=== PATIENT | female | born 1940 | race Caucasian/White ===

== ENCOUNTER 2022-05-24 15:27 | Observation (INO) | payer MEDICARE, OTHER ==
[2022-05-24 16:52] LABS: Bilirubin Neg (Negative); Blood, Urine 150 (Negative); Clarity Clear (Clear); Glucose, Urine (Dipstick) Normal (Negative); Ketone, Urine 5 mg/dL (Negative); Leukocyte Negative (Negative); Nitrite Negative (Negative); Protein, Urine (Dipstick) 30 mg/dl (Neg-Trace); Specific Gravity, Urine 1.025 (1.002-1.036); Urobilinogen Normal mg/dL (Less than 2)
[2022-05-24 17:03] LABS: SARS-CoV-2 NAA Rapid Test DETECTED (NotDetected)
[2022-05-24 17:10] LABS: Transitional Epithelial 0-3 HPF (None Seen)
[2022-05-24 17:11] LABS: ALT (SGPT) 17 U/L (8-55); AST (SGOT) 27 U/L (5-34); Albumin 4.1 g/dL (3.4-4.8); Alkaline Phosphatase 63 U/L (40-110); Anion Gap 13 mmol/L (10-20); BUN (Urea Nitrogen) 18 mg/dL (9.8-20.1); Bacteria/HPF 1+ HPF (None Seen); Bilirubin, Total 0.5 mg/dL (0.2-1.2); Calc. Creatinine Clearance 0 mL/min (70-130); Calcium 9.2 mg/dL (7.8-10.44); Carbon Dioxide 28 mmol/L (23-31); Chloride 101 mmol/L (98-107); Estimated GFR 75; Globulin 2.7 g/dL (2.4-3.5); Glucose 87 mg/dL (83-110); Potassium 3.5 mmol/L (3.5-5.1); Protein, Total 6.8 g/dL (5.8-8.1); Sodium 138 mmol/L (136-145)
[2022-05-24 17:16] LABS: Hemoglobin 14.1 g/dL (12.0-15.5); Mean Corpuscular Hemoglobin 34.5 pg (27.0-33.0); Mean Corpuscular Volume 98.5 fl (81.6-98.3); Mean Platelet Volume 10.8 fl (7.4-10.4); Platelet Count 176 10x3/uL (150-450); RBC Distribution Width 13.7 % (11.5-14.5); Red Blood Cell (RBC) Count 4.09 10x6/uL (3.90-5.03)
[2022-05-24 17:32] LABS: CKMB 4.1 ng/mL (0-6.6)
[2022-05-24 18:31] LABS: Band 8 % (5-11); Reactive Lymphocytes 3 % (0-10)
[2022-05-24 18:33] LABS: Lymphocytes 28 % (21-51); Monocytes 14 % (0-10)
[2022-05-24 18:34] LABS: Large Platelets SLIGHT; Neutrophil 47 % (42-75); Platelet Clumps SLIGHT; Platelet Morphology Comment Appears Adequate
[2022-05-24 18:35] LABS: MDiff Complete? YES
[2022-05-24 18:36] LABS: RBC Morphology Normal
[2022-05-24] MEDS ORDERED: Acetaminophen 325 MG TAB PO PRN (20:01)
[2022-05-24] MEDS ORDERED: Benzonatate 100 MG CAP PO PRN (20:01)
[2022-05-24] MEDS ORDERED: Acetaminophen 650 MG Suppository PR PRN (20:01)
[2022-05-24] MEDS ORDERED: REMDESIVIR 200 MG in Sodium Chloride 0.9% 250 ML 210 ML IV SCH (20:15)
[2022-05-24 21:02] LABS: Troponin I 0.029 ng/mL (< 0.028)
[2022-05-24] MEDS ORDERED: Furosemide 40 MG/4 ML VIAL SLOW IVP SCH (21:15)
[2022-05-24] MEDS ORDERED: Ventolin HFA Inhaler 60 PUFF INHALER INH PRN (21:16)
[2022-05-24] MEDS ORDERED: Furosemide 40 MG/4 ML VIAL ONE (21:41)
[2022-05-24] MEDS ORDERED: Ondansetron ODT 4 MG TAB PO PRN (22:11)
[2022-05-24] MEDS ORDERED: Ondansetron PF 4 MG/2 ML Vial IVP PRN (22:11)
[2022-05-24 23:20] LABS: Troponin I 0.028 ng/mL (< 0.028)
[2022-05-25 05:23] LABS: Anion Gap 17 mmol/L (10-20); BUN (Urea Nitrogen) 12 mg/dL (9.8-20.1); CRP (Inflammatory) 2.53 mg/dL (= or < 0.5); Calc. Creatinine Clearance 0 mL/min (70-130); Calcium 8.8 mg/dL (7.8-10.44); Carbon Dioxide 23 mmol/L (23-31); Chloride 102 mmol/L (98-107); Estimated GFR 81; Glucose 76 mg/dL (83-110); Potassium 3.1 mmol/L (3.5-5.1); Sodium 139 mmol/L (136-145)
[2022-05-25 05:29] LABS: Hemoglobin 13.8 g/dL (12.0-15.5); Mean Corpuscular HGB CONC 35.2 g/dL (32.0-36.0); Mean Corpuscular Volume 96.6 fl (81.6-98.3); Mean Platelet Volume 10.3 fl (7.4-10.4); Platelet Count 167 10x3/uL (150-450); RBC Distribution Width 13.4 % (11.5-14.5); Red Blood Cell (RBC) Count 4.06 10x6/uL (3.90-5.03); White Blood Cell (WBC) Count 2.9 10x3/uL (3.5-10.5)
[2022-05-25 05:30] LABS: MDiff Complete? YES
[2022-05-25 05:42] LABS: Platelet Morphology Comment Appears Adequate; RBC Morphology Normal
[2022-05-25 05:43] LABS: Lymphocytes 25 % (21-51); Monocytes 20 % (0-10); Neutrophil 55 % (42-75)
[2022-05-25] MEDS ORDERED: Enoxaparin Sodium 40 MG/0.4 ML SYRINGE ONE (08:07)
[2022-05-25] MEDS ORDERED: Zinc Sulfate 220 MG CAP ONE (08:08)
[2022-05-25] MEDS ORDERED: Ascorbic Acid 500 mg Chewable Tablet ONE (08:08)
[2022-05-25] MEDS: Zinc Sulfate 220 MG CAP PO SCH (08:19)
[2022-05-25] MEDS: Cholecalciferol (Vitamin D3) 400 UNITS TAB PO SCH (08:19)
[2022-05-25] MEDS: Enoxaparin Sodium 40 MG/0.4 ML SYRINGE SC SCH (08:19)
[2022-05-25] MEDS: Ascorbic Acid 500 mg Chewable Tablet PO SCH (08:19)
[2022-05-25] MEDS ORDERED: Furosemide 20 MG/2 ML VIAL SLOW IVP SCH (11:45)
[2022-05-25] MEDS ORDERED: Potassium Chloride 20 MEQ TAB PO SCH (11:45)
[2022-05-25] MEDS ORDERED: Furosemide 40 MG/4 ML VIAL ONE (12:37)
[2022-05-25] MEDS ORDERED: Potassium Chloride 20 MEQ TAB ONE (12:37)
[2022-05-25 15:40] VITALS: BMI 23.3
[2022-05-25] MEDS ORDERED: Melatonin 3 MG TAB PO PRN (21:03)
[2022-05-25] MEDS ORDERED: Melatonin 3 MG TAB PO SCH (23:45)
[2022-05-26 05:17] LABS: Anion Gap 14 mmol/L (10-20); BUN (Urea Nitrogen) 11 mg/dL (9.8-20.1); Calc. Creatinine Clearance 60 mL/min (70-130); Calcium 9.1 mg/dL (7.8-10.44); Carbon Dioxide 25 mmol/L (23-31); Chloride 101 mmol/L (98-107); Estimated GFR 79; Glucose 86 mg/dL (83-110); Magnesium 1.8 mg/dL (1.6-2.6); Potassium 3.4 mmol/L (3.5-5.1); Sodium 137 mmol/L (136-145)
[2022-05-26 05:33] LABS: Hemoglobin 13.9 g/dL (12.0-15.5); Mean Corpuscular Hemoglobin 33.6 pg (27.0-33.0); Mean Corpuscular Volume 95.9 fl (81.6-98.3); Mean Platelet Volume 10.3 fl (7.4-10.4); Platelet Count 166 10x3/uL (150-450); RBC Distribution Width 13.3 % (11.5-14.5); Red Blood Cell (RBC) Count 4.14 10x6/uL (3.90-5.03); White Blood Cell (WBC) Count 1.8 10x3/uL (3.5-10.5)
[2022-05-26 05:39] LABS: MDiff Complete? YES
[2022-05-26 06:22] LABS: Band 3 % (5-11); Eosinophils 2 % (0-10); Lymphocytes 39 % (21-51); Monocytes 14 % (0-10); Neutrophil 40 % (42-75); Reactive Lymphocytes 2 % (0-10)
[2022-05-26 06:26] LABS: Platelet Morphology Comment Appears Adequate
[2022-05-26 06:27] LABS: RBC Morphology Normal
[2022-05-26 06:57] LABS: Reflex for Review?? YES
[2022-05-26] MEDS: Cholecalciferol (Vitamin D3) 400 UNITS TAB PO SCH (09:02)
[2022-05-26] MEDS: Ascorbic Acid 500 mg Chewable Tablet PO SCH (09:02)
[2022-05-26] MEDS: Zinc Sulfate 220 MG CAP PO SCH (09:02)
[2022-05-26] MEDS: Enoxaparin Sodium 40 MG/0.4 ML SYRINGE SC SCH (09:02)
[2022-05-26 13:24] VITALS: BP 97/52; TEMP 97.6
== END 2022-05-26 15:09 | disposition home or self-care (01) ==
LOC: CSHERS 15:27 → CSHERHOLD 21:05 → CSHTELE 05-25 13:20
PROVIDERS: ADMIT Family Medicine; ATTEND Family Medicine
DX: U07.1 COVID-19 (principal); R60.0 Localized edema; E87.6 Hypokalemia; D72.819 Decreased white blood cell count, unspecified; R91.8 Other nonspecific abnormal finding of lung field; M19.90 Unspecified osteoarthritis, unspecified site; E03.9 Hypothyroidism, unspecified; G30.9 Alzheimer's disease, unspecified; F02.80 Dementia in other diseases classified elsewhere, unspecified severity, without behavioral disturbance, psychotic disturbance, mood disturbance, and anxiety; G89.29 Other chronic pain; M54.9 Dorsalgia, unspecified; M47.812 Spondylosis without myelopathy or radiculopathy, cervical region; I35.1 Nonrheumatic aortic (valve) insufficiency; Z87.891 Personal history of nicotine dependence; Z79.890 Hormone replacement therapy; Z79.899 Other long term (current) drug therapy; Z88.0 Allergy status to penicillin; Z88.5 Allergy status to narcotic agent
CPT/HCPCS: 0240U; 51701; 70450; 71045; 72125; 72170; 80048 ×2; 82553; 83735; 83880; 84484 ×2; 85025 ×2; 86140; 93306; 94760; 97116 ×2; 97530; 99285; 36415; 80053; 81003; 81015; 84443; 85060; 96372; 96374; 96376; G0378; J1650; J1940

== ENCOUNTER 2022-08-01 11:16 | Outpatient (CLI) | payer MEDICARE, OTHER | END 2022-08-01 11:17 | disposition home or self-care (01) | LOC: CSHRAD 11:16 | PROVIDERS: ATTEND Nurse Practitioner Adult Health | DX: M54.41 Lumbago with sciatica, right side (principal); M47.816 Spondylosis without myelopathy or radiculopathy, lumbar region; Z98.1 Arthrodesis status; Z96.642 Presence of left artificial hip joint; Z98.890 Other specified postprocedural states | CPT/HCPCS: 72100 ==